=== PATIENT | female | born 1990 | race Caucasian/White ===

== ENCOUNTER 2018-01-13 22:44 | Inpatient (IN) ==
[~2018-01-13 22:44] MED LIST: CITRIC ACID/SODIUM CITRATE 30ml PO ONE; CLINDAMYCIN PB 600 MG/50 ML BAG IV ONE; FAMOTIDINE PB 20 MG/50 ML BAG IV ONE; GENTAMICIN PB 120 MG/100 ML BAG IV ONE
[2018-01-13 22:46] VITALS: BMI 28.7
[2018-01-13] MEDS ORDERED: FentaNYL 250 MCG/5 ML INJECTION ONE (22:54)
[2018-01-13] MEDS ORDERED: MORPHINE SULFATE PF 5mg/10ml INJ (Duramorph) ONE ×2 (22:54)
[2018-01-13] MEDS ORDERED: BUPIVACAINE 0.75%/DEXTROSE 8.5% SPINAL 2 ML AMPULE IJ ONE (22:55)
[2018-01-13] MEDS ORDERED: TRANEXAMIC ACID 1,000 MG in NS 100 ML IV ONE (23:39)
[2018-01-13] MEDS ORDERED: OXYTOCIN DRIP 30 UNIT/500 ML ML IV SCH (23:45)
[2018-01-13] MEDS ORDERED: OXYTOCIN BOLUS BAG 30 UNIT/500 ML ML IV SCH (23:45)
[2018-01-13] MEDS: LR 1,000 ML IV SCH (23:45)
--- NOTE | 2018-01-13 23:58 | Operative Note ---
Operative Note - Date of Operation Date of Operation: 01/13/18 - General : 4 Para: 3 Expected Date of Delivery: 01/25/18 - Preoperative Diagnosis Previous Section Preoperative Diagnosis: Desires sterilization - Postoperative Diagnosis Postoperative Diagnosis: Same - Procedure Repeat, Tubal Ligation - Surgeon Surgeon: Keny Hubbard MD - Rotary Lithographic Press Operator OB Rotary Lithographic Press Operator: Heriberto Barrios MD - Anesthesia Anesthesia Provider: Gamal Stephenson CRNA - Estimated Blood Loss Estimated Blood Loss:: 1300 - Findings Findings: viable male - APGARS : 39 - [place] Weight Weight (grams): 9lbs 12 oz - [place] Name [place] Name: Sander
[2018-01-13] MEDS ORDERED: DiphenhydrAMINE 25 MG CAPSULE PO PRN (23:59)
[2018-01-13] MEDS ORDERED: ACETAMINOPHEN 500 MG TABLET PO PRN (23:59)
[2018-01-13] MEDS ORDERED: HYDROCORTISONE 2.5% CREAM 30gm RECTALLY PRN (23:59)
[2018-01-13] MEDS ORDERED: SIMETHICONE 80 MG CHEWABLE TABLET PO PRN (23:59)
[2018-01-14] MEDS: D5LR 1,000 ML IV SCH ×3 (00:15→21:19)
[2018-01-14] MEDS ORDERED: METOCLOPRAMIDE 10mg/2ml INJECTION IVP PRN (00:18)
[2018-01-14] MEDS ORDERED: NALOXONE 2 MG/2 ML INJECTION PFS IVP PRN (00:18)
[2018-01-14] MEDS ORDERED: ONDANSETRON 4 MG/2 ML INJECTION IVP PRN (00:18)
[2018-01-14] MEDS ORDERED: NALBUPHINE 10 MG/ML INJECTION IVP PRN (00:18)
--- NOTE | 2018-01-14 00:18 | Anesthesia Preoperative Report ---
Anesthesia Epidural/Spinal Rec - Date and Time Date: 01/14/18 Procedure: Plan: Spinal - Vital Signs NPO since: 1800 /Para: P:4 Heart Rate: 144 - Medictaions & Allergies Inpatient Medications: Current Medications Acetaminophen (Tylenol) 500 - 1,000 mg PO Q4H PRN PRN Reason: Pain Hydrocodone Bitart/Acetaminophen (Gering 5/325) 1 - 2 tab PO Q4H PRN PRN Reason: Pain Calcium Carbonate (Tums) 500 mg PO O PRN Citric Acid/Sodium Citrate (Oracit) 30 ml PO PREOP ONE Stop: 01/13/18 22:06 Diphenhydramine HCl (Benadryl) 25 - 50 mg PO Q6H PRN PRN Reason: Itching Docusate Calcium (Surfak) 240 mg PO DAILY [facility] Hydrocortisone (Anusol-Hc 2.5% Cream) 1 applic RECTALLY PRN PRN PRN Reason: Hemorrhoids Clindamycin Phosphate (Cleocin 600 Mg Premix) 600 mg in 50 mls @ 100 mls/hr IV PREOP ONE Stop: 01/13/18 22:34 Famotidine/Sodium Chloride (Pepcid Premix) 20 mg in 50 mls @ 100 mls/hr IV PREOP ONE Stop: 01/13/18 22:34 Gentamicin Sulfate/Sodium Chloride (Garamycin Premix) 120 mg in 100 mls @ 200 mls/hr IV PREOP ONE Stop: 01/13/18 22:34 Last Infusion: 01/13/18 23:27 Dose: Infused Lactated Ringer's (Lactated Ringers) 1,000 mls @ 150 mls/hr IV .Q6H40M [facility] Last Admin: 01/13/18 23:45 Dose: 150 mls/hr Oxytocin (Pitocin Bolus Bag) 30 unit in 500 mls @ 999 mls/hr IV .Q31M [facility] Stop: 01/14/18 00:15 Last Admin: 01/13/18 23:24 Dose: 999 mls/hr Tranexamic Acid 1,000 mg/ (Sodium Chloride) 110 mls @ 660 mls/hr IV INTRAOP ONE Stop: 01/13/18 23:48 Last Infusion: 01/13/18 23:36 Dose: Infused Dextrose/Lactated Ringer's (Dextrose 5%-Lactated Ringers) 1,000 mls @ 100 mls/ hr IV .Q10H GUALBERTO Oxytocin (Pitocin Drip) 30 unit in 500 mls @ 50 mls/hr IV .Q10H GUALBERTO Stop: 01/14/18 09:44 Ibuprofen (Motrin) 800 mg PO Q8H PRN PRN Reason: Pain Magnesium Hydroxide (Mom) 30 ml PO HS PRN PRN Reason: Constipation Simethicone (Mylicon) 80 mg PO PCHS GUALBERTO Simethicone (Mylicon) 80 mg PO PCHS PRN PRN Reason: Gas Allergies/Adverse Reactions: Allergies Allergy/AdvReac Type Severity Reaction Status Date / Time amoxicillin Allergy Unknown Verified 07/21/17 14:24 Penicillins Allergy Unknown Verified 07/21/17 14:24 - Home Medications Home Medications: Home Medications Medication Instructions Recorded Confirmed Type Ferrous Sulfate (Iron Supplement) 1 tab PO DAILY #0 10/04/11 History Vit/Fe Fumarate/Fa 1 tab PO DAILY #0 10/04/11 History ( Vitamin Tablet) Magnesium Hydroxide/Al Hydrox 30 ml PO #0 10/30/11 History (Maalox) Calcium Carbonate [Tums] 1 tab PO DAILY #0 03/30/15 History Hydrocodone/Acetaminophen 1 - 2 tab PO Q4H PRN #30 tab 04/14/15 Rx [Hydrocodon-Acetaminophen 5-325] Ibuprofen 800 mg PO Q8H PRN #30 tab 04/14/15 Rx - Medical History Other History: DENIES: Anesthesia Reactions, Blood Transfusions - Surgical History Reproductive Surgery/Treatment: Reports: Section Anesthesia Reactions: None Hx Family Anesthesia Reaction: No History of Motion Sickness: No - Social History Smoking Status: Never smoker Substance Use Type: does not use Alcohol Intake Frequency: does not drink Hx Chewing Tobacco Use: No - Pertinent Findings Lab Data: CBC and BMP 01/13/18 22:21 - Physical Exam Respiratory Exam: lungs clear, bilateral breath sounds equal Cardiovascular Exam: regular rate and rhythm - Airway Assessment Mallampati Score: II Neck Extension: good Teeth: chipped teeth/crowns (chipped upper left back tooth) Overall Assessment: no airway concerns - ASA ASA Score: 2, E - Discussion Discussion: Discussed risks/options/alternatives of anesthesia and questions answered. Patient consents. Nursing pain assessment noted. Anesthesia Discussion: family member Attestation Statement: Prior to the delivery of any anesthetic medication, I examined the patient, developed the plan, obtained the patient's consent and discussed the risk and benefits of the procedure with the patient/guardian.
[2018-01-14] MEDS: HYDROCODONE/APAP 5mg/325mg TABLET PO PRN ×4 (03:14→21:00)
[2018-01-14] MEDS: IBUPROFEN 800 MG TABLET PO PRN ×3 (03:14→19:59)
[2018-01-14] MEDS: DOCUSATE CALCIUM 240 MG CAPSULE PO SCH (10:34)
[2018-01-14] MEDS: CALCIUM CARBONATE Chewable 500mg TABLET PO PRN ×2 (10:34→10:35)
--- NOTE | 2018-01-14 13:07 | Operative Note ---
DATE OF OPERATION: 01/13/2018 PREOPERATIVE DIAGNOSES 1. 27-year-old white female G6, P3, at 38 weeks 2 days gestational age. 2. Previous x3. 3. Desires permanent sterilization. 4. Spontaneous labor. POSTOPERATIVE DIAGNOSES 1. Male infant, Apgars, 4424 grams (Sander Gunnar). 2. Nuchal cord x1. PROCEDURES: Repeat low transverse section and modified Liu tubal ligation. EBL: 1300 mL ANESTHESIA: Spinal block by Gamal Stephenson CRNA PRIMARY SURGEON: Keny Hubbard MD INTERACTIVE MEDIA PROJECT MANAGER: Heriberto Barrios D.O. COMPLICATIONS: None DESCRIPTION OF PROCEDURE After adequate spinal block anesthesia, the patient was prepped and draped in the left lateral decubitus position. The old scar was excised in an ellipsoid fashion. A Pfannenstiel skin incision was made with a sharp knife and carried down to the fascia, which was incised transversely with the Kraus scissors. The rectus fascia was bluntly and sharply dissected off the rectus muscle. The rectus muscle was divided, and the peritoneum was isolated, elevated, entered with the Metzenbaum scissors and extended cephalad and caudad. The bladder blade was then inserted. Then using a sharp knife, a transverse incision was made in the lower uterine segment above the bladder. This was extended with my fingers. A male was delivered from the vertex position. There was a nuchal cord x1 that was reduced. Initially we had difficulty elevating the head out of the pelvis due to the size but we were able to successfully achieve that and then the infant was bulb suctioned after delivery of the head and then again after delivery of the body. Cord was doubly clamped and cut and the infant was received by Dr. Ted Beavers of Pediatrics. The placenta was expressed manually and was intact. The uterus was then allowed to fall upon the external abdominal wall. The endometrial cavity was cleansed using moist lap sponges. The uterus was closed using 0-Monocryl in a running locking fashion. Hemostasis was confirmed. The posterior cul-de-sac was cleansed of old blood clots and the tubes and ovaries were examined and found to be normal in size, shape and appearance. Our attention was then turned to tubal ligation. The right fallopian tube was isolated and then a mid-isthmic portion of the tube was grasped with the [place] clamp, elevated and then a knuckle of the tube was ligated using 2-0 chromic. A Ailyn clamp was passed through the meso of the tube and then the proximal and distal aspects of the knuckle of the tube were ligated using 2-0 silk. The knuckle of the tube was excised and sent to surgical pathology for lumen confirmation. This procedure was then repeated on the left side and hemostasis was confirmed. After hemostasis was again confirmed, the uterus was then carefully returned to the abdominal cavity. The abdomen was then closed in layers. The peritoneum was closed using 2-0 Vicryl in running nonlocking fashion. The fascia was closed using 0-Vicryl in a running nonlocking fashion bilaterally from the lateral aspects medially. Hemostasis was achieved with the subcutaneous tissue. Four simple interrupted 3-0 Vicryls were used to decrease the wound tension in the subcuticular area. The skin was closed using wide hali in a serial fashion. Four horizontal mattress 3-0 Monocryls were used to keep the skin edges everted. The patient tolerated the procedure well and went to the recovery room in stable condition. Pad, sponge and needle counts were correct and urine postop was clear and free flowing. MTDD
[2018-01-14] MEDS: SIMETHICONE 80 MG CHEWABLE TABLET PO SCH ×3 (15:39→21:00)
--- NOTE | 2018-01-14 18:18 | Progress Note ---
OB PP Progress Note Free Text - Date Date: 01/14/18 - Progress Note Progress Note: vss af anemia noted no c/o cont care path q&a-krb
[2018-01-14] MEDS: LR 1,000 ML IV SCH (21:18)
[2018-01-15] MEDS: HYDROCODONE/APAP 5mg/325mg TABLET PO PRN ×5 (01:51→20:32)
[2018-01-15] MEDS: SIMETHICONE 80 MG CHEWABLE TABLET PO SCH ×5 (01:51→23:36)
[2018-01-15] MEDS: IBUPROFEN 800 MG TABLET PO PRN ×3 (04:42→20:33)
[2018-01-15] MEDS: DOCUSATE CALCIUM 240 MG CAPSULE PO SCH (09:29)
--- NOTE | 2018-01-15 13:09 | Progress Note ---
OB PP Progress Note Free Text - Date Date: 01/15/18 - Progress Note Progress Note: vss af doing ok 'no c/o cont care path-krb
[2018-01-16] MEDS: HYDROCODONE/APAP 5mg/325mg TABLET PO PRN ×4 (00:43→14:05)
[2018-01-16] MEDS: IBUPROFEN 800 MG TABLET PO PRN ×2 (04:38→15:28)
[2018-01-16] MEDS: SIMETHICONE 80 MG CHEWABLE TABLET PO SCH ×2 (08:49→14:05)
[2018-01-16] MEDS: DOCUSATE CALCIUM 240 MG CAPSULE PO SCH (08:49)
--- NOTE | 2018-01-16 10:47 | Progress Note ---
OB PP Progress Note Free Text - Date Date: 01/16/18 - Progress Note Progress Note: vss af doing well dc to home today f/u next week for hali rx written q&a-krb
[2018-01-16 10:50] VITALS: BP 125/86; PULSE 70; RESP 18; TEMP 97.8; O2SAT 98
== END 2018-01-16 15:57 | disposition home or self-care (01) | DRG 766 ==
LOC: MC
PROVIDERS: ADMIT Obstetrics & Gynecology; ATTEND Obstetrics & Gynecology